=== PATIENT | female | born 1945 | race Caucasian/White ===

== ENCOUNTER 2016-12-26 16:43 | Emergency (ER) | payer MEDICARE, OTHER ==
--- NOTE | 2016-12-26 16:56 | ER Document Report ---
ED Medical Screen (RME) - General Chief Complaint: Leg Pain Stated Complaint: LEG PAIN Time Seen by Provider: 12/26/16 16:48 Mode of Arrival: Ambulatory Information source: Patient TRAVEL OUTSIDE OF THE [place] IN LAST 30 DAYS: No - HPI Patient complains to provider of: Left lower extremity pain Onset: Last week Onset/Duration: Gradual Quality of pain: Achy Notes: 12/26/16 16:55 Patient is a 71-year-old female presenting to the emergency room today complaining of one-week history of left lower extremity pain, she denies injury or trauma - Related Data Allergies/Adverse Reactions: Penicillins Allergy (Verified 12/26/16 16:47) Past Medical History - Past Medical History Cardiac Medical History: Reports: Hx Hypertension Pulmonary Medical History: Reports: Hx COPD Renal/ Medical History: Denies: Hx Peritoneal Dialysis Past Surgical History: Reports: Hx Cholecystectomy - 1993, Hx Hysterectomy, Hx Orthopedic Surgery - back, Hx Tonsillectomy - Immunizations Hx Diphtheria, Pertussis, Tetanus Vaccination: Yes Physical Exam - Vital signs Vitals: Temp Pulse Resp BP Pulse Ox 97.9 F 96 18 106/61 98 12/26/16 16:49 12/26/16 16:49 12/26/16 16:49 12/26/16 16:49 12/26/16 16:49 Course - Vital Signs Vital signs: Temp Pulse Resp BP Pulse Ox 97.9 F 96 18 106/61 98 12/26/16 16:49 12/26/16 16:49 12/26/16 16:49 12/26/16 16:49 12/26/16 16:49
--- NOTE | 2016-12-26 17:02 | ER Document Report ---
ED Extremity Problem, Lower - General Chief Complaint: Leg Pain Stated Complaint: LEG PAIN Time Seen by Provider: 12/26/16 16:48 Mode of Arrival: Ambulatory Information source: Patient TRAVEL OUTSIDE OF THE [place] IN LAST 30 DAYS: No - HPI Patient complains to provider of: Pain, Swelling Location: Leg Occurred: Last week Where: Home Onset/Duration: Gradual, Intermittent, Waxing and waning Quality of pain: Achy, Fullness Severity: Moderate Pain Level: 3 Recent injury: No Notes: Patient is a 71-year-old female presenting to the emergency room today complaining of one-week history of left lower extremity pain, denies any injury or trauma recently, does have a history of low back pain with drop foot on this side, also has a history of a knee injury remotely that she was seen for in this department in the past, patient denies any history of any blood clots - Related Data Allergies/Adverse Reactions: Penicillins Allergy (Verified 12/26/16 16:47) Past Medical History - General Information source: Patient - Social History Smoking Status: Former Smoker Family History: Reviewed & Not Pertinent - Past Medical History Cardiac Medical History: Reports: Hx Hypertension Pulmonary Medical History: Reports: Hx COPD Renal/ Medical History: Denies: Hx Peritoneal Dialysis Past Surgical History: Reports: Hx Cholecystectomy - 1993, Hx Hysterectomy, Hx Orthopedic Surgery - , Hx Tonsillectomy - Immunizations Hx Diphtheria, Pertussis, Tetanus Vaccination: Yes Review of Systems - Review of Systems Constitutional: No symptoms reported EENT: No symptoms reported Cardiovascular: No symptoms reported Respiratory: No symptoms reported Gastrointestinal: No symptoms reported Genitourinary: No symptoms reported Female Genitourinary: No symptoms reported Musculoskeletal: See HPI Skin: No symptoms reported Hematologic/Lymphatic: No symptoms reported Neurological/Psychological: No symptoms reported -: Yes All other systems reviewed and negative Physical Exam - Vital signs Vitals: Temp Pulse Resp BP Pulse Ox 97.9 F 96 18 106/61 98 12/26/16 16:49 12/26/16 16:49 12/26/16 16:49 12/26/16 16:49 12/26/16 16:49 - Notes Notes: - General General appearance: Appears well, Alert In distress: None - HEENT Head: Normocephalic, Atraumatic Eyes: Normal Conjunctiva: Normal Extraocular movements intact: Yes Eyelashes: Normal Pupils: PERRL - Respiratory Respiratory status: No respiratory distress - Cardiovascular Rhythm: Regular - Abdominal Inspection: Normal - Back Back: Normal - Extremities General upper extremity: Normal inspection General lower extremity: Left lower extremity calf pain, tenderness to palpate, pain with range of motion testing - Neurological Neuro grossly intact: Yes Orientation: AAOx4 Gopi Coma Scale Eye Opening: Spontaneous Gopi Coma Scale Verbal: Oriented [place] Coma Scale Motor: Obeys Commands [place] Coma Scale Total: 15 - Psychological Associated symptoms: Normal affect, Normal mood - Skin Skin Temperature: Warm Skin Moisture: Dry Skin Color: Normal Course - Re-evaluation Re-evalutation: 12/26/16 17:02 Patient declined pain medication 12/26/16 17:40 Imaging findings discussed with patient which are negative for DVT, she was advised to follow-up with an orthopedic surgeon, she states she really has an appointment with an orthopedic surgeon within the next week for low back problems, this is likely the source of her left leg pain as well, patient will be discharged with instructions for follow-up and advised to return if any additional concerns, patient acknowledges understanding and agreement with this plan - Vital Signs Vital signs: Temp Pulse Resp BP Pulse Ox 97.9 F 96 18 106/61 98 12/26/16 16:49 12/26/16 16:49 12/26/16 16:49 12/26/16 16:49 12/26/16 16:49 Discharge - Discharge Clinical Impression: Left leg pain Condition: Stable Disposition: HOME, SELF-CARE Instructions: Leg Pain Nonspecific ([facility]) Additional Instructions: Follow up with your primary care provider in one to 2 days. Return to the emergency room immediately if symptoms worsen or any additional concerns. Follow-up with orthopedic surgery as scheduled.
--- NOTE | 2016-12-26 18:14 | RADIOLOGY REPORT (SQ) ---
EXAM DESCRIPTION: VENOUS UNILATERAL LOWER COMPLETED DATE/TIME: 12/26/2016 5:48 pm REASON FOR STUDY: left LE pain COMPARISON: None. TECHNIQUE: Dynamic and static maurice scale and color images acquired of the left leg venous system. Se lected spectral images acquired with additional compression and augmentation maneuvers. The contralat eral common femoral vein and saphenofemoral junction were also imaged. Images stored on PACS. LIMITATIONS: None. FINDINGS: COMMON FEMORAL: Normal phasicity, compression and augmentation. No visualized echogenic ma terial on maurice scale. No defects on color images. FEMORAL: Normal compression and augmentation. No visualized echogenic material on maurice scale. No defe cts on color images. POPLITEAL: Normal compression, augmentation. No visualized echogenic material on maurice scale. No defec ts on color images. CALF VESSELS: Normal compression, augmentation. No visualized echogenic material on maurice scale. No de fects on color images. GSV and SSV: Normal compression, augmentation. No visualized echogenic material on maurice scale. No def ects on color images. ANY DEEP VENOUS INSUFFICIENCY: Not evaluated. ANY EVIDENCE OF POPLITEAL CYST: No. OTHER: No other significant finding. CONTRALATERAL COMMON FEMORAL VEIN AND SAPHENOFEMORAL JUNCTION: Normal phasicity, compression and augmentation. No visualized echogenic material on maurice scale. No de fects on color images. IMPRESSION: NO EVIDENCE OF DVT OR SVT IN THE LEFT LEG. TECHNICAL DOCUMENTATION: JOB ID: [id number] [employer]- All Rights Reserved
[2016-12-26 18:25] VITALS: BP 136/84
== END 2016-12-26 18:02 | disposition home or self-care (01) ==
LOC: ER 16:43
DX: M79.662 Pain in left lower leg (principal); I10 Essential (primary) hypertension; J44.9 Chronic obstructive pulmonary disease, unspecified; Z87.828 Personal history of other (healed) physical injury and trauma; Z87.39 Personal history of other diseases of the musculoskeletal system and connective tissue; Z88.0 Allergy status to penicillin
CPT/HCPCS: 93971; 99283

== ENCOUNTER 2018-05-28 09:30 | Day surgery (SDC) | payer MEDICARE, OTHER ==
[~2018-05-28 09:30] MED LIST: CHONDR SU A NA/HYALUR INTRAOC KIT (SURGICARE) ONE; EPINEPHRINE INJ/PF 1 MG/1 ML AMPULE ONE; KETOROLAC TROMETHAMINE 0.45% 4 DROP/0.4 ML DROPERETTE OS PRN; LIDOCAINE 1% INJ-PF (10 MG/ML) 30 ML SDV ONE; TOBRAMYCIN SULFATE/DEXAMETH OPH OINTMENT 3.5 GM ONE
[2018-05-28] MEDS: TETRACAINE HCL 0.5% OPH SOLN 0.6 ML DROPERETTE OS PRN ×2 (10:38→11:04)
[2018-05-28] MEDS: BESIFLOXACIN HCL 0.6% OPH SUSP 5 ML BOTTLE OS PRN ×2 (10:39→10:52)
[2018-05-28] MEDS: CYCLOPENTOLATE 0.2%/PHENYLEPHRINE 1% OPH SOLN 2 ML OS PRN ×3 (10:39→11:01)
[2018-05-28] MEDS: TROPICAMIDE 1% OPH SOLN 3 ML OS PRN ×3 (10:39→11:01)
[2018-05-28] MEDS ORDERED: MIDAZOLAM 2 MG/2 ML INJ ONE (10:54)
[2018-05-28] MEDS ORDERED: FENTANYL CITRATE INJ/PF 100 MCG/2 ML AMPUL ONE (10:54)
== END 2018-05-28 12:14 | disposition home or self-care (01) ==
LOC: SC 09:30
PROVIDERS: ATTEND Ophthalmology
DX: H25.12 Age-related nuclear cataract, left eye (principal); J44.9 Chronic obstructive pulmonary disease, unspecified; F17.210 Nicotine dependence, cigarettes, uncomplicated; I10 Essential (primary) hypertension; K21.9 Gastro-esophageal reflux disease without esophagitis; Z79.51 Long term (current) use of inhaled steroids; Z79.899 Other long term (current) drug therapy; Z86.73 Personal history of transient ischemic attack (TIA), and cerebral infarction without residual deficits
CPT/HCPCS: 66984; V2632; J2250; J3490 ×3; A9270; J0171; J3010

== ENCOUNTER 2018-06-11 10:25 | Day surgery (SDC) | payer MEDICARE, OTHER ==
[~2018-06-11 10:25] MED LIST changes: -CHONDR SU A NA/HYALUR INTRAOC KIT (SURGICARE) ONE; -EPINEPHRINE INJ/PF 1 MG/1 ML AMPULE ONE; +KETOROLAC TROMETHAMINE 0.45% 4 DROP/0.4 ML DROPERETTE OD PRN; -KETOROLAC TROMETHAMINE 0.45% 4 DROP/0.4 ML DROPERETTE OS PRN; -LIDOCAINE 1% INJ-PF (10 MG/ML) 30 ML SDV ONE; -TOBRAMYCIN SULFATE/DEXAMETH OPH OINTMENT 3.5 GM ONE
[2018-06-11] MEDS ORDERED: EPINEPHRINE INJ/PF 1 MG/1 ML AMPULE ONE (10:28)
[2018-06-11] MEDS ORDERED: LIDOCAINE 1% INJ-PF (10 MG/ML) 30 ML SDV ONE (10:29)
[2018-06-11] MEDS ORDERED: CHONDR SU A NA/HYALUR INTRAOC KIT (SURGICARE) ONE (10:29)
[2018-06-11] MEDS: TROPICAMIDE 1% OPH SOLN 3 ML OD PRN ×3 (10:53→11:15)
[2018-06-11] MEDS: CYCLOPENTOLATE 0.2%/PHENYLEPHRINE 1% OPH SOLN 2 ML OD PRN ×3 (10:53→11:15)
[2018-06-11] MEDS: BESIFLOXACIN HCL 0.6% OPH SUSP 5 ML BOTTLE OD PRN ×4 (10:54→11:42)
[2018-06-11] MEDS: TETRACAINE HCL 0.5% OPH SOLN 0.6 ML DROPERETTE OD PRN ×3 (10:55→11:18)
[2018-06-11] MEDS ORDERED: MIDAZOLAM 2 MG/2 ML INJ ONE (11:03)
[2018-06-11] MEDS: TOBRAMYCIN SULFATE/DEXAMETH OPH OINTMENT 3.5 GM ONE ×2 (11:42)
== END 2018-06-11 12:17 | disposition home or self-care (01) ==
LOC: SC 10:25
PROVIDERS: ATTEND Ophthalmology
DX: H25.11 Age-related nuclear cataract, right eye (principal); Z98.42 Cataract extraction status, left eye; J44.9 Chronic obstructive pulmonary disease, unspecified; I10 Essential (primary) hypertension; F17.210 Nicotine dependence, cigarettes, uncomplicated; I38 Endocarditis, valve unspecified; Z86.73 Personal history of transient ischemic attack (TIA), and cerebral infarction without residual deficits; Z79.51 Long term (current) use of inhaled steroids; Z79.899 Other long term (current) drug therapy
CPT/HCPCS: 66984; V2632; J2250; J3490 ×3; A9270; J0171; 142

== ENCOUNTER → 2019-02-13 | Outpatient (CLI) | payer MEDICARE, OTHER ==
--- NOTE | 2019-02-13 12:28 | WOMENS IMAGING REPORT ---
EXAM DESCRIPTION: RETROPERITONEAL U/S COMPLETED DATE/TIME: 02/13/2019 10:01 am REASON FOR STUDY: N18.3 CHRONIC KIDNEY DISEASE, STAGE 3 (MODERATE) N18.3 CHRONIC KIDNEY DISEASE, ST AGE 4 (MODERATE) COMPARISON: None. TECHNIQUE: Dynamic and static grayscale images acquired of the kidneys and bladder and recorded on P ACS. Additional selected color Doppler and spectral images recorded. LIMITATIONS: None. FINDINGS: RIGHT KIDNEY: The right kidney measures 8.5 cm in length. The corticomedullary different iation is preserved however there is thinning of the cortex. There is no hydronephrosis, mass or shalom cification. LEFT KIDNEY: The left kidney measures 8.4 cm in length. The corticomedullary differentiation is pre served however there is thinning of the cortex. There is no hydronephrosis, mass or calcification. BLADDER: No masses. OTHER FINDINGS: No other finding. IMPRESSION: Bilateral cortical thinning suggestive of chronic renal disease. There is no hydronephr osis, mass or calcification. TECHNICAL DOCUMENTATION: JOB ID: [id number] [employer]- All Rights Reserved Reading location - IP/workstation name: [email or web address]
== END ==
LOC: WI 09:25
PROVIDERS: ATTEND Internal Medicine Nephrology
DX: I12.9 Hypertensive chronic kidney disease with stage 1 through stage 4 chronic kidney disease, or unspecified chronic kidney disease (principal); N18.3 Chronic kidney disease, stage 3 (moderate); K21.9 Gastro-esophageal reflux disease without esophagitis; E78.5 Hyperlipidemia, unspecified
CPT/HCPCS: 76770

== ENCOUNTER → 2019-11-23 | Outpatient (CLI) | payer MEDICARE, OTHER ==
[2019-11-23 11:53] LABS: ABSOLUTE BASOPHILS # (AUTO) 0.1 10^3/uL (0.0-0.2); ABSOLUTE EOSINOPHILS # (AUTO) 0.2 10^3/uL (0.0-0.6); ABSOLUTE LYMPHOCYTES (AUTO) 1.3 10^3/uL (0.5-4.7); ABSOLUTE MONOCYTES (AUTO) 0.5 10^3/uL (0.1-1.4); ABSOLUTE NEUT (AUTO) 5.8 10^3/uL (1.7-8.2); BASOPHILS % (AUTO) 0.8 % (0-2); EOSINOPHILS % (AUTO) 2.6 % (0-6); HEMATOCRIT 32.7 % (36.0-47.0); HEMOGLOBIN 11.1 g/dL (12.0-15.5); LYMPHOCYTES % (AUTO) 16.8 % (13-45); MEAN CORPUSCULAR HEMOGLOBIN 30.7 pg (27.0-33.4); MEAN CORPUSCULAR HGB CONC 33.9 g/dL (32.0-36.0); MEAN CORPUSCULAR VOLUME 91 fl (80-97); MONOCYTES % (AUTO) 6.8 % (3-13); PLATELET COUNT 256 10^3/uL (150-450); RED BLOOD COUNT 3.61 10^6/uL (3.72-5.28); RED CELL DISTRIBUTION WIDTH 16.1 % (11.5-14.0); TOTAL CELLS COUNTED % (AUTO) 100 %
[2019-11-23 12:15] LABS: ALBUMIN 3.9 g/dL (3.5-5.0); ANION GAP 8 (5-19); BLOOD UREA NITROGEN 20 mg/dL (7-20); CALCIUM 8.7 mg/dL (8.4-10.2); CARBON DIOXIDE 27 mmol/L (22-30); CHLORIDE 95 mmol/L (98-107); GLUCOSE 84 mg/dL (75-110); PHOSPHORUS 3.7 mg/dL (2.5-4.5)
== END ==
LOC: OD 11:30
PROVIDERS: ATTEND Internal Medicine Nephrology
DX: I12.9 Hypertensive chronic kidney disease with stage 1 through stage 4 chronic kidney disease, or unspecified chronic kidney disease (principal); N18.3 Chronic kidney disease, stage 3 (moderate); E78.5 Hyperlipidemia, unspecified
CPT/HCPCS: 36415; 80069; 82306; 83970; 85025